=== PATIENT | female | born 1970 | race Caucasian/White ===

== ENCOUNTER 2017-12-20 16:34 | Emergency (ER) | payer OTHER ==
[~2017-12-20] VITALS: Ht 154.9 cm; Wt 74.3 kg
[~2017-12-20 16:34] MED LIST: ANAPROX275 MG PO; CALCIUM 500 MG1 EACH PO; CINNAMON500 MG PO; DEPAKOTE ER500 MG PO; ENALAPRIL MALEA20 MG PO; GLUCOPHAGE1000 MG PO; ZETIA10 MG PO
[2017-12-20] MEDS ORDERED: PREDNISONE50 MG PO (19:20)
[2017-12-20 19:50] VITALS: BP 108/68
== END 2017-12-20 19:50 | disposition home or self-care (01) ==
LOC: EME 16:34
DX: M54.9 Dorsalgia, unspecified (principal); Z88.5 Allergy status to narcotic agent; Z88.1 Allergy status to other antibiotic agents
CPT/HCPCS: 71046; 99281; 99283